=== PATIENT | male | born 1995 | race Two or more races ===

== ENCOUNTER 2024-06-30 10:06 | Emergency (ER) | payer OTHER ==
[~2024-06-30] VITALS: Ht 167.6 cm; Wt 97.5 kg
[2024-06-30] MEDS ORDERED: [UNRECOGNIZED DRUG - OTHER] IV (11:13)
[2024-06-30 11:14] VITALS: BP 130/70; O2SAT 100
[2024-06-30] MEDS ORDERED: CEFTRIAXONE SODIUM 1,000 MG VIAL IM STA (11:38)
[2024-06-30] MEDS ORDERED: CEFTRIAXONE SODIUM 1,000 MG VIAL ONE (11:47)
[2024-06-30 12:02] LABS: HEMATOCRIT 46.6 % (39.0-48.0); HEMOGLOBIN 15.4 g/dL (13-16.00); MEAN CELL VOLUME 80.2 fL (80.0-100.00); MEAN CORPUSCULAR HEMOGLOBIN 26.5 pg (27.00-32.0); PLATELET COUNT 230 K/uL (150-450); RED BLOOD COUNT 5.81 M/uL (4.00-6.00); RED CELL DISTRIBUTION WIDTH 13.7 % (11.5-14.5)
[2024-06-30 13:11] LABS: CALCIUM 9.6 mg/dL (8.5-10.1); CREATININE SERUM 1.05 mg/dL (0.70-1.30); GFR 85.38; POTASSIUM 4.61 mEq/L (3.5-5.1)
== END 2024-06-30 13:18 | disposition home or self-care (01) ==
LOC: ER 10:08
PROVIDERS: General Practice
DX: L03.213 Periorbital cellulitis (principal); Z88.6 Allergy status to analgesic agent; Z91.013 Allergy to seafood